=== PATIENT | male | born 1940 | race Caucasian/White ===

== ENCOUNTER 2021-04-06 08:45 | Emergency (ER) | payer MEDICARE, OTHER ==
[~2021-04-06] VITALS: Ht 167.6 cm; Wt 59.9 kg
--- NOTE | 2021-04-06 09:04 | NUR ---
patient seen evaluated by ER Md condition stable d/c home with instructions after care reviewed understood left er ambulatory with family.
== END 2021-04-06 09:05 | disposition home or self-care (01) ==
LOC: ER 08:45
DX: T80.89XD Other complications following infusion, transfusion and therapeutic injection, subsequent encounter (principal); R60.0 Localized edema
CPT/HCPCS: A4663